=== PATIENT | female | born 1965 | race African-American/Black ===

== ENCOUNTER 2016-04-20 09:39 | Emergency (ER) | payer BC ==
[2016-04-20 10:31] VITALS: BP 116/69
--- NOTE | 2016-04-20 12:01 | UC ---
Throat Pain/Nasal John HPI - HPI Summary HPI Summary: ONE WEEK OF CONGESTION, THREE DAYS OF SWOLLEN TONSILS, CHILLS. - History of Current Complaint Chief Complaint: UCRespiratory Stated Complaint: SORE THROAT Time Seen by Provider: 04/20/16 10:23 Hx Obtained From: Patient Hx Last Menstrual Period: [id number] Onset/Duration: Gradual Onset, Lasting Days, Still Present Severity: Moderate Pain Intensity: 0 Pain Scale Used: 0-10 Numeric Associated Signs & Symptoms: Positive: Hoarseness, Sinus Discomfort, Nasal Discharge - Epiglottits Risk Factors Epiglottis Risk Factors: Negative - Allergies/Home Medications Allergies/Adverse Reactions: Allergies Allergy/AdvReac Type Severity Reaction Status Date / Time No Known Allergies Allergy Verified 04/20/16 10:31 Home Medications: Home Medications Albuterol Sulfate [Proair Respiclick] 04/20/16 [History] Montelukast Sodium TAB* [Singulair 10 MG TAB*] 10 04/20/16 [History] Propranolol TAB* [Inderal TAB*] 80 04/20/16 [History] PMH/Surg Hx/FS Hx/Imm Hx Previously Healthy: Yes Endocrine History Of: Denies: Diabetes Cardiovascular History Of: Reports: Hypertension Respiratory History Of: Reports: Asthma Denies: COPD Other History Of: Negative For: Anticoagulant Therapy - Surgical History Surgical History: Yes Surgery Procedure, Year, and Place: ablation 02/10 - Family History Known Family History: Positive: Hypertension Family History: Fhx of Asthma. No FHx of heart arrhythmias - Social History Occupation: Employed Full-time Lives: With Family Alcohol Use: None Substance Use Type: None Smoking Status (MU): Never Smoked Tobacco Review of Systems Constitutional: Chills, Fatigue Skin: Negative Eyes: Negative ENT: Sore Throat, Ear Ache Respiratory: Negative Cardiovascular: Negative Gastrointestinal: Negative Genitourinary: Negative Motor: Negative Neurovascular: Negative Musculoskeletal: Negative Neurological: Negative Psychological: Negative All Other Systems Reviewed And Are Negative: Yes Physical Exam Triage Information Reviewed: Yes Appearance: No Pain Distress, Well-Nourished, Ill-Appearing - MILD Vital Signs: Initial Vital Signs Temp 98.0 F 04/20/16 10:24 Pulse 80 04/20/16 10:24 Resp 18 04/20/16 10:24 BP 116/69 04/20/16 10:24 Pulse Ox 98 04/20/16 10:24 Vital Signs Reviewed: Yes Eye Exam: Normal ENT: Positive: Hearing grossly normal, Pharyngeal erythema, Nasal congestion, TM bulging, TM dull, Tonsillar swelling, Tonsillar exudate Dental Exam: Normal Neck exam: Normal Neck: Positive: Supple, Nontender, No Lymphadenopathy Respiratory Exam: Normal Respiratory: Positive: Chest non-tender, Lungs clear, Normal breath sounds, No respiratory distress Cardiovascular Exam: Normal Cardiovascular: Positive: RRR, No Murmur, Pulses Normal, Brisk Capillary Refill Abdominal Exam: Normal Abdomen Description: Positive: Nontender, No Organomegaly Musculoskeletal Exam: Normal Musculoskeletal: Positive: Strength Intact, ROM Intact Neurological Exam: Normal Psychological Exam: Normal Psychological: Positive: Normal Response To Family Skin Exam: Normal Throat Pain/Nasal Course/Dx - Differential Dx/Diagnosis Differential Diagnosis/HQI/PQRI: Pharyngitis, Sinusitis, Tonsillitis, URI Provider Diagnoses: SINUSITIS. TONSILLITIS Discharge - Discharge Plan Condition: Stable Disposition: HOME Prescriptions: Amoxicillin/Clavulanate TAB* [Augmentin TAB 875*] 875 mg PO BID #20 tab Patient Education Materials: Sinusitis (ED), Tonsillitis (ED) Forms: *Work Release Referrals: [facility] [place] [facility] [Outside]
== END 2016-04-20 11:54 | disposition home or self-care (01) ==
LOC: UCEAST 09:39
DX: J03.90 Acute tonsillitis, unspecified (principal); J32.9 Chronic sinusitis, unspecified; I10 Essential (primary) hypertension; J45.909 Unspecified asthma, uncomplicated
CPT/HCPCS: 87651; 99212; G0463

== ENCOUNTER → 2016-11-09 15:44 | Emergency (ER) | payer BC ==
[~2016-11-09 15:44] MED LIST: HYDROcodone/ACETAMIN 5-325 MG* 1 TAB PO ONE
[2016-11-09 16:16] VITALS: BP 144/90
--- NOTE | 2016-11-09 17:17 | RAD ---
INDICATION: Bilateral knee pain. Injury. COMPARISON: None TECHNIQUE: Standing weightbearing AP, lateral, tunnel, and sunrise views of each knee were obtained. FINDINGS: There are no acute bony findings. There is mild to moderate bilateral patellofemoral osteoarthritis. The medial and lateral joint spaces are preserved. There are no effusions. IMPRESSION: MODERATE, BILATERAL PATELLOFEMORAL OSTEOARTHRITIS
--- NOTE | 2016-11-09 17:19 | RAD ---
INDICATION: Left wrist injury COMPARISON: None TECHNIQUE: AP, lateral, and oblique views were obtained. FINDINGS: There is no acute fracture. The carpals articulate normally. There is diffuse soft tissue swelling about the distal forearm. IMPRESSION: SOFT TISSUE SWELLING. NO ACUTE FRACTURE.
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
== END | disposition home or self-care (01) ==
LOC: ED 15:44
DX: S60.212A Contusion of left wrist, initial encounter (principal); M17.0 Bilateral primary osteoarthritis of knee; I10 Essential (primary) hypertension; V43.52XA Car driver injured in collision with other type car in traffic accident, initial encounter; Y92.9 Unspecified place or not applicable
CPT/HCPCS: 99282